=== PATIENT | male | born 1990 | race Caucasian/White ===

== ENCOUNTER 2023-08-09 08:40 | Emergency (ER) | payer SELFPAY ==
[~2023-08-09] VITALS: Ht 175.3 cm; Wt 72.6 kg
[2023-08-09 08:45] VITALS: O2SAT 99
[2023-08-09] MEDS: IBUPROFEN 600 MG TAB PO STA (09:02)
== END 2023-08-09 10:25 | disposition home or self-care (01) ==
LOC: ER 08:54
DX: R05.9 Cough, unspecified (principal); B34.9 Viral infection, unspecified; R20.0 Anesthesia of skin; R51.9 Headache, unspecified; Z11.52 Encounter for screening for COVID-19
CPT/HCPCS: 87400; 87420; 99282; U0002